=== PATIENT | male | born 1985 | race Caucasian/White ===

== ENCOUNTER 2024-07-03 17:27 | Emergency (ER) | payer SELFPAY ==
[2024-07-03 20:05] LABS: APPEARANCE,URINE CLEAR (CLEAR); BILIRUBIN,URINE NEGATIVE (NEGATIVE); COLOR,URINE YELLOW (YELLOW); GLUCOSE,URINE NEGATIVE (NEGATIVE); KETONES,URINE NEGATIVE (NEGATIVE); LEUKOCYTE ESTERASE,URINE NEGATIVE (NEGATIVE); NITRITE,URINE NEGATIVE (NEGATIVE); OCCULT BLOOD,URINE NEGATIVE (NEGATIVE); PH,URINE 5.5 (5.0-8.0); PROTEIN,URINE 30 mg/dL (NEGATIVE); UROBILINOGEN,URINE 0.2 EU/dL (0.2-1.0)
[2024-07-03 20:15] LABS: AMORPHOUS SEDIMENT,URINE NOT SEEN; BACTERIA,URINE RARE; EPITHELIAL CELLS,URINE RARE; MUCUS,URINE RARE; RBC,URINE 0-5 (0-5); WBC,URINE 0-5 (0-5)
[2024-07-03 20:20] LABS: BASOPHILS ABSOLUTE AUTO 0.08 K/uL (0.00-0.10); BASOPHILS PERCENT AUTO 0.9 % (0.1-1.3); EOSINOPHILS ABSOLUTE AUTO 0.67 K/uL (0.00-0.40); EOSINOPHILS PERCENT AUTO 7.6 % (0.0-5.4); HEMATOCRIT 45.2 % (38.4-49.7); HEMOGLOBIN 15.5 g/dL (12.9-16.9); IMMATURE GRAN PERCENT AUTO 0.2 % (0.0-0.7); LYMPHOCYTES ABSOLUTE AUTO 2.15 K/uL (0.8-3.3); LYMPHOCYTES PERCENT AUTO 24.2 % (11.4-47.7); MEAN CORPUSCULAR HEMOGLOBIN 30.2 pg (31.6-35.5); MEAN CORPUSCULAR HGB CONC 34.3 g/dL (31.6-35.5); MEAN CORPUSCULAR VOLUME 88.1 fL (81.4-99.0); MONOCYTES ABSOLUTE AUTO 0.98 K/uL (0.20-0.90); NEUTROPHILS ABSOLUTE AUTO 4.97 K/uL (1.0-7.6); NEUTROPHILS PERCENT AUTO 56.1 % (40.0-78.1); PLATELET COUNT,PLT 361 K/uL (130-375); RED BLOOD CELL COUNT 5.13 M/uL (4.14-5.76); WHITE BLOOD CELL COUNT,WBC 8.9 K/uL (3.2-11.0)
[2024-07-03 20:21] LABS: IMMATURE GRAN ABSOLUTE AUTO 0.02 K/uL (0.00-0.23)
[2024-07-03 20:43] LABS: ALANINE AMINOTRANSFERASE,ALT 49 U/L (12-78); ALBUMIN 3.8 g/dL (3.4-5.0); ALKALINE PHOSPHATASE 74 U/L (46-116); ASPARTATE AMNIOTRANSFERASE,AST 21 U/L (15-37); BILIRUBIN TOTAL 0.6 mg/dL (0.2-1.0); BLOOD UREA NITROGEN,BUN 16 mg/dL (7-18); CALCIUM 9.2 mg/dL (8.5-10.1); CARBON DIOXIDE,CO2 25 mmol/L (21-32); CHLORIDE,CL 104 mmol/L (100-108); CREATININE 1.1 mg/dL (0.8-1.3); EST CRCL DRUG DOSING (CG) 95.08 mL/min; ESTIMATED GFR 87 mL/min (>60); GLUCOSE RANDOM 92 mg/dL (74-106); PROTEIN TOTAL,TP 7.7 g/dL (6.4-8.2); SODIUM,NA 138 mmol/L (140-148)
[2024-07-03 20:45] LABS: C-REACTIVE PROTEIN < 0.50 mg/dL (<0.50)
== END 2024-07-03 21:45 | disposition home or self-care (01) ==
LOC: JP.ED 17:27
DX: K92.2 Gastrointestinal hemorrhage, unspecified (principal); I10 Essential (primary) hypertension; Z86.16 Personal history of COVID-19
CPT/HCPCS: 36415; 80053; 81001; 83690; 85025; 86140; 99284

== ENCOUNTER 2024-07-10 06:55 | Day surgery (SDC) | payer SELFPAY ==
[2024-07-10] MEDS ORDERED: fentaNYL 100 MCG/2 ML SDV ONE (07:16)
[2024-07-10] MEDS ORDERED: Propofol 200 MG/20 ML SDV ONE ×2 (07:16→08:24)
[2024-07-10] MEDS ORDERED: Midazolam 1 MG/ML 2 ML SDV ONE (07:16)
[2024-07-10] MEDS: Lactated Ringers 1,000 ML IV SCH (07:27)
== END 2024-07-10 10:07 | disposition home or self-care (01) ==
LOC: JP.SDS 06:55
PROVIDERS: ATTEND Surgery
DX: K62.89 Other specified diseases of anus and rectum (principal); K92.2 Gastrointestinal hemorrhage, unspecified; I10 Essential (primary) hypertension; E78.5 Hyperlipidemia, unspecified; E66.9 Obesity, unspecified
CPT/HCPCS: 00811; 45380; 88305; J2250; J2704; J3010; J7120